=== PATIENT | female | born 1945 | race Caucasian/White ===

== ENCOUNTER → 2016-06-20 | Outpatient (CLI) | payer MEDICARE, BC | LOC: MW.CHPOD 08:00 | PROVIDERS: ATTEND Podiatrist Foot & Ankle Surgery | DX: M79.673 Pain in unspecified foot (principal); R26.9 Unspecified abnormalities of gait and mobility; M21.969 Unspecified acquired deformity of unspecified lower leg; M20.41 Other hammer toe(s) (acquired), right foot; B35.1 Tinea unguium; M20.42 Other hammer toe(s) (acquired), left foot | CPT/HCPCS: 11721; G0463 ==

== ENCOUNTER 2017-01-24 07:53 | Inpatient (IN) | payer MEDICARE, BC ==
[2017-01-24] MEDS ORDERED: Sodium Chloride 0.9% 2.5 ML Syringe FLUSH PRN (08:08)
[2017-01-24] MEDS ORDERED: Sodium Chloride 0.9% 10 ML Syringe FLUSH PRN (08:08)
--- NOTE | 2017-01-24 08:20 | EDM.PDOC ---
ED HPI GENERAL MEDICAL PROBLEM - General Chief Complaint: Respiratory Problem Stated Complaint: FLUIDS DRAINED FROM LUNGS Time Seen by Provider: 01/24/17 07:55 Source of Information: Reports: Patient History Limitations: Reports: No Limitations - History of Present Illness INITIAL COMMENTS - FREE TEXT/NARRATIVE: History of present illness: []Patient is a 71-year-old female who has lived at [facility] for several years with severe RA and multiple joint replacements. Patient has had a week and half of cough and shortness of breath. She was seen by her primary doctor, Dr. Coburn 3 days ago, had a CT scan of her chest done yesterday. The CT was read as bilateral loculated pleural effusions. Review of systems: As per history of present illness and below otherwise all systems reviewed and negative. Past medical history: As per history of present illness and as reviewed below otherwise noncontributory. Surgical history: As per history of present illness and as reviewed below otherwise noncontributory. Social history: No reported history of drug or alcohol abuse. Family history: As per history of present illness and as reviewed below otherwise noncontributory. Physical exam: General: Elderly thin female, mildly short of breath in obvious pain HEENT: Atraumatic, normocephalic, pupils reactive, negative for conjunctival pallor or scleral icterus, mucous membranes moist, throat clear, neck supple tracheostomy in place with a metal cannula, nontender, trachea midline. Lungs: Bilateral mild expiratory wheezing to auscultation, breath sounds equal bilaterally, chest nontender. No accessory muscle use Heart: S1S2, regular, negative for clicks, rubs, or JVD. Abdomen: Soft, nondistended, nontender. Negative for masses or hepatosplenomegaly. Negative for costovertebral tenderness. Pelvis: Stable nontender. Genitourinary: Deferred. Rectal: Deferred. Extremities: Atraumatic, negative for cords or calf pain. Neurovascular unremarkable. Neuro: Awake, alert, . Cranial nerves II through XII unremarkable. Limited mobility secondary to RA joint destruction and pain Diagnostics: []Labs done, she had a CT of the chest done yesterday showing bilateral pleural effusions, blood cultures done Therapeutics: []IV fluids, pain control and antibiotics ordered Impression: []Bilateral pleural effusions Plan: []Admit to floor for drainage of pleural effusions Definitive disposition and diagnosis as appropriate pending reevaluation and review of above. Generalized Pain Score (Numeric/FACES): 8 - Related Data Allergies Allergy/AdvReac Type Severity Reaction Status Date / Time Carbapenems Allergy Unknown unknown Verified 01/24/17 08:32 cephalexin Allergy Unknown unknown Verified 01/24/17 08:32 Cephalosporins Allergy Unknown unknown Verified 01/24/17 08:32 Sulfa (Sulfonamide Allergy Unknown unknown Verified 01/24/17 08:32 Antibiotics) adhesive Allergy Hives Verified 01/24/17 08:32 ceftriaxone sodium Allergy Cannot Verified 01/24/17 08:32 [From Rocephin] Remember cephalexin monohydrate Allergy Cannot Verified 01/24/17 08:32 [From Keflex] Remember gold Au [id number] [Gold [id number]] Allergy Cannot Verified 01/24/17 08:32 Remember latex Allergy Itching Verified 01/24/17 08:32 Penicillins Allergy Cannot Verified 01/24/17 08:32 Remember Home Meds: Home Meds Ferrous Sulfate [Iron Supplement] 325 mg PO DAILY #30 05/19/13 [Rx] Folic Acid 1 mg PO DAILY #30 05/19/13 [Rx] Ibuprofen [Motrin] 600 mg PO TID #90 05/19/13 [Rx] Levalbuterol HCl [Xopenex] 1.25 mg INH Q2H PRN #100 neb 05/19/13 [Rx] Magnesium Hydroxide [Milk of Magnesia] 30 ml PO DAILY PRN #300 05/19/13 [Rx] Vitamin E 400 intnl unit PO DAILY #30 05/19/13 [Rx] Venlafaxine HCl [Venlafaxine ER] 37.5 mg PO DAILY 10/02/13 [History] Sodium Chloride 0.9% 3 ml IH ASDIRECTED PRN 11/02/13 [History] Acetaminophen [Non-Aspirin Extra Strength] 2 tab PO BEDTIME 09/26/14 [History] Acyclovir 400 mg PO TID PRN 09/26/14 [History] Albuterol [Proventil Neb Soln] 2.5 mg NEB Q6HRRT PRN 09/26/14 [History] Ascorbic Acid [Vitamin C] 500 mg PO DAILY 09/26/14 [History] Biotin [Demetrio Biotin] 10,000 mcg PO DAILY 09/26/14 [History] Calcium Carbonate [Tums] 1,000 mg PO BID 09/26/14 [History] Chlorpheniramine Maleate [Allergy] 4 mg PO DAILY PRN 09/26/14 [History] Cod Liver Oil 1 cap PO DAILY 09/26/14 [History] Fluticasone Propionate [Flonase] 1 mcg NASBOTH BEDTIME PRN 09/26/14 [History] Loperamide HCl [Anti-Diarrheal] 2 mg PO DAILY PRN 09/26/14 [History] MV-Mn/FA/Coq10/Lycopene/Lutein [Theragran-M Premier 50+ Caplet] 1 each PO DAILY 09/26/14 [History] Menthol [Biofreeze] 1 applic TOP DAILY PRN 09/26/14 [History] Methotrexate Sodium/PF [Methotrexate 50 mg/2 ml Vial] 25 mg IM ASDIRECTED [History] Montelukast Sodium 10 mg PO DAILY 09/26/14 [History] Omeprazole [Prilosec] 20 cap PO BEDTIME 09/26/14 [History] Propylene Glycol/Peg 400 [Systane 0.3-0.4% Eye Drops] 1 drop OP Q2HR PRN [History] traMADol [Ultram] 50 mg PO Q6HR PRN 09/26/14 [History] Acetaminophen [Tylenol Extra Strength] 1,000 mg PO BID PRN 11/10/14 [History] Sodium Chloride [Saline Nasal Mist] 1 spray NS ASDIRECTED PRN 11/10/14 [History] Docusate Sodium/Sennosides [Senna Plus] 1 tab PO BEDTIME PRN 02/09/15 [History] Metoprolol Succinate [Toprol XL] 50 mg PO DAILY tab.er 02/10/15 [Rx] Acetaminophen with Codeine [Tylenol with Codeine #3 Tablet] 1 tab PO Q4H PRN 09/03 [History] Amoxicillin/Potassium Clav [Augmentin 875-125 Tablet] 1 tab PO BID 01/24/17 [ History] Lactobacillus Acidophilus [Acidophilus] 2 cap PO BID 01/24/17 [History] Past Medical History HEENT History: Reports: Hard of Hearing Other HEENT History: Wears 1 hearing aid sometimes Cardiovascular History: Reports: Hypertension Other Cardiovascular History: anemia Respiratory History: Reports: Asthma, Other (See Below) Other Respiratory History: Tracheostomy maintenance Gastrointestinal History: Reports: Other (See Below) Other Gastrointestinal History: Heartburn Genitourinary History: Reports: None [employer] History: Reports: Other OB/BYN History: amenorrhea Musculoskeletal History: Reports: Arthritis, Osteoarthritis, Other (See Below) Other Musculoskeletal History: 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 Neurological History: Reports: None Psychiatric History: Reports: Depression Endocrine/Metabolic History: Reports: Osteoporosis Hematologic History: Reports: None Immunologic History: Reports: None Oncologic (Cancer) History: Reports: None Other Oncologic History: 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 (current status in [facility] care) Dermatologic History: Reports: None - Infectious Disease History Infectious Disease History: Reports: Chicken Pox, Measles, Mumps - Past Surgical History Female Surgical History: Reports: Tubal Ligation Endocrine Surgical History: Reports: Other (See Below) Musculoskeletal Surgical History: Reports: Hip Replacement, Knee Replacement, Shoulder Replacement Social & Family History - Family History Family Medical History: Unobtainable - Tobacco Use Smoking Status *Q: Never Smoker Second Hand Smoke Exposure: No - Caffeine Use Caffeine Use: Reports: None - Alcohol Use Days Per Week of Alcohol Use: 0 Number of Drinks Per Day: 0 Total Drinks Per Week: 0 - Recreational Drug Use Recreational Drug Use: No Drug Use in Last 12 Months: No ED ROS GENERAL - Review of Systems Review Of Systems: See Below (See history of present illness) ED EXAM, GENERAL - Physical Exam Exam: See Below (See history of present illness) Course - Vital Signs Last Recorded V/S: Last Vital Signs Temp 98.1 F 01/24/17 11:00 Pulse 99 01/24/17 11:00 Resp 24 H 01/24/17 11:00 BP 119/63 01/24/17 11:00 Pulse Ox 99 01/24/17 11:00 - Orders/Labs/Meds Orders: Active Orders 24 hr Category Date Time Status RT Aerosol Therapy [RC] ASDIRECTED Care 01/24/17 09:36 Active CULTURE BLOOD [BC] Stat Lab 01/24/17 08:25 Received CULTURE BLOOD [BC] Stat Lab 01/24/17 08:39 Received Sodium Chloride 0.9% [Normal Saline] 500 ml Med 01/24/17 10:15 Active IV .BOLUS Sodium Chloride 0.9% [Saline Flush] Med 01/24/17 08:08 Active 10 ml FLUSH ASDIRECTED PRN Sodium Chloride 0.9% [Saline Flush] Med 01/24/17 08:08 Active 2.5 ml FLUSH ASDIRECTED PRN Blood Culture x2 Reflex Set [OM.PC] Stat Ot 01/24/17 08:09 Ordered Saline Lock Insert [OM.PC] Stat Ot 01/24/17 08:07 Ordered Medication Orders Acetaminophen (Tylenol) 325 mg PO Q4H PRN PRN Reason: Pain (Mild 1-3)/fever Acetaminophen/Codeine Phosphate (Tylenol With Codeine No.3 300mg/30mg) 1 tab PO Q4H PRN PRN Reason: Pain Last Admin: 01/24/17 13:43 Dose: 1 tab Acidophilus/Pectin (Acidophilus/Pectin, [place]) 2 tab PO BID [facility] Albuterol/Ipratropium (Duoneb 3.0-0.5 Mg/3 Ml) 3 ml NEB Q6HRRT [facility] Last Admin: 01/24/17 13:26 Dose: Calcium Carbonate/Glycine (Tums) 1,000 mg PO BID [facility] Ferrous Sulfate (Ferrous Sulfate) 325 mg PO DAILY [facility] Folic Acid (Folic Acid) 1 mg PO DAILY [facility] Hydrogen Peroxide (Hydrogen Peroxide) 0 ml TOP ASDIRECTED PRN PRN Reason: ASDIRECTED Sodium Chloride (Normal Saline) 500 mls @ 250 mls/hr IV .BOLUS [facility] Last Admin: 01/24/17 10:09 Dose: 250 mls/hr Levofloxacin/Dextrose 500 mg/ (Premix) 100 mls @ 100 mls/hr IV Q48H [facility] Last Admin: 01/24/17 11:39 Dose: 100 mls/hr Piperacillin Sod/Tazobactam (Sod 2.25 gm/ Sodium Chloride) 50 mls @ 100 mls/hr IV Q8H [facility] Vancomycin HCl 500 mg/ Sodium (Chloride) 100 mls @ 100 mls/hr IV Q24H [facility] Last Admin: 01/24/17 13:45 Dose: 100 mls/hr Ibuprofen (Motrin) 600 mg PO TID [facility] Last Admin: 01/24/17 13:44 Dose: 600 mg Loperamide HCl (Imodium) 2 mg PO DAILY PRN PRN Reason: Diarrhea Magnesium Hydroxide (Milk Of Magnesia) 30 ml PO DAILY PRN PRN Reason: Constipation Metoprolol Succinate (Toprol Xl) 50 mg PO DAILY [facility] Omeprazole (Omeprazole) 20 mg PO BEDTIME [place] Ondansetron HCl (Zofran) 4 mg IVPUSH Q4H PRN PRN Reason: Nausea Biotin [Demetrio Biotin] (10,000 Mcg) 1 each PO DAILY [facility] Mv-Mn/Fa/Coq10/Lycopene/Lutein [ Theragran-M Premier 50+ Cap] 1 each PO DAILY [facility] Propylene Glycol/Peg 400 [Systane 0.3-0. 4% Eye Drops] 1 Drop 1 each EYEBOTH Q2HR PRN PRN Reason: Dry Eyes Senna/Docusate Sodium (Senna Plus) 1 tab PO BEDTIME PRN PRN Reason: Constipation Sodium Chloride (Saline Flush) 10 ml FLUSH ASDIRECTED PRN PRN Reason: Keep Vein Open Sodium Chloride (Saline Flush) 2.5 ml FLUSH ASDIRECTED PRN PRN Reason: Keep Vein Open Sodium Chloride ([place] Nasal [place]) 1 ml RADHA ASDIRECTED PRN PRN Reason: allergies for dryness Tramadol HCl (Ultram) 50 mg PO Q6HR PRN PRN Reason: Pain Last Admin: 01/24/17 12:11 Dose: 50 mg Vancomycin HCl (Pharmacy To Dose - Vancomycin) 1 dose .XX ASDIRECTED [facility] Venlafaxine HCl (Effexor Xr) 37.5 mg PO DAILY [facility] Vitamin E (Vitamin E) 400 units PO DAILY [facility] Labs: Laboratory Tests 01/24/17 01/24/17 01/24/17 Range/Units 08:25 08:25 08:25 WBC 6.42 (4.0-11.0) K/uL RBC 2.85 L (4.30-5.90) M/uL Hgb 9.5 L (12.0-16.0) g/dL Hct 28.1 L (36.0-46.0) % MCV 98.6 H (80.0-98.0) fL MCH 33.3 H (27.0-32.0) pg MCHC 33.8 (31.0-37.0) g/dL RDW Std Deviation 52.3 (28.0-62.0) fl RDW Coeff of Beau 15 (11.0-15.0) % Plt Count 171 (150-400) K/uL MPV 9.20 (7.40-12.00) fL Add Manual Diff YES Neutrophils % (Manual) 77 (48.0-80.0) % Band Neutrophils % 11 % Lymphocytes % (Manual) 7 L (16.0-40.0) % Monocytes % (Manual) 4 (0.0-15.0) % Eosinophils % (Manual) 1 (0.0-7.0) % Nucleated RBC % 0.0 /100WBC Absolute Seg Neuts 4.9 (1.4-5.7) Band Neutrophils # 0.7 Lymphocytes # (Manual) 0.4 L (0.6-2.4) Monocytes # (Manual) 0.3 (0.0-0.8) Eosinophils # (Manual) 0.1 (0.0-0.7) Basophils # (Manual) 0.1 (0.0-0.1) Nucleated RBCs # 0 K/uL INR 1.05 (0.86-1.11) APTT 31.0 (18.6-31.3) SEC Sodium 130 L (136-146) mmol/L Potassium 3.8 (3.5-5.1) mmol/L Chloride 98 (98-110) mmol/L Carbon Dioxide 18 L (21-31) mmol/L BUN 30 H (6.0-23.0) mg/dL Creatinine 2.1 H (0.6-1.5) mg/dL Est Cr Clr Drug Dosing 16.24 mL/min Estimated GFR (MDRD) 23.3 ml/min Glucose 89 (60-110) mg/dL Calcium 8.9 (8.8-10.8) mg/dL Total Bilirubin 0.4 (0.1-1.5) mg/dL AST 17 (5-40) IU/L ALT 10 (8-54) IU/L Alkaline Phosphatase 59 (40-150) Total Protein 6.7 (6.0-8.0) g/dL Albumin 3.3 L (3.4-4.8) g/dL Globulin 3.4 (2.0-3.5) g/dL Albumin/Globulin Ratio 1.0 L (1.3-2.8) Meds: Medications Generic Name Dose Route Start Last Admin Trade Name Freq PRN Reason Stop Dose Admin Acetaminophen 325 mg 01/24/17 10:38 Tylenol PO Q4H PRN Pain (Mild 1-3)/fever Acetaminophen/Codeine Phosphate 1 tab 01/24/17 10:44 01/24/17 13:43 Tylenol With Codeine No.3 300mg/30mg PO 1 tab Q4H PRN Administration Pain Acidophilus/Pectin 2 tab 01/24/17 21:00 Acidophilus/Pectin, [place] PO BID [facility] Albuterol/Ipratropium 3 ml 01/24/17 12:00 01/24/17 13:26 Duoneb 3.0-0.5 Mg/3 Ml NEB Not Given Q6HRRT [facility] Calcium Carbonate/Glycine 1,000 mg 01/24/17 21:00 Tums PO BID [facility] Ferrous Sulfate 325 mg 01/25/17 09:00 Ferrous Sulfate PO DAILY [facility] Folic Acid 1 mg 01/25/17 09:00 Folic Acid PO DAILY [facility] Hydrogen Peroxide 0 ml 01/24/17 12:18 Hydrogen Peroxide TOP ASDIRECTED PRN ASDIRECTED Sodium Chloride 500 mls @ 250 mls/hr 01/24/17 10:15 01/24/17 10:09 Normal Saline IV 250 mls/hr .BOLUS [facility] Administration Levofloxacin/Dextrose 500 mg/ 100 mls @ 100 mls/hr 01/24/17 11:30 01/24/17 11 :39 Premix IV 100 mls/hr Q48H [facility] Administration Piperacillin Sod/Tazobactam 50 mls @ 100 mls/hr 01/24/17 16:00 Sod 2.25 gm/ Sodium Chloride IV Q8H [facility] Vancomycin HCl 500 mg/ Sodium 100 mls @ 100 mls/hr 01/24/17 13:00 01/24/17 13 :45 Chloride IV 100 mls/hr Q24H [facility] Administration Ibuprofen 600 mg 01/24/17 14:00 01/24/17 13:44 Motrin PO 600 mg TID [facility] Administration Loperamide HCl 2 mg 01/24/17 10:44 Imodium PO DAILY PRN Diarrhea Magnesium Hydroxide 30 ml 01/24/17 10:44 Milk Of Magnesia PO DAILY PRN Constipation Metoprolol Succinate 50 mg 01/25/17 09:00 Toprol Xl PO DAILY [facility] Omeprazole 20 mg 01/24/17 21:00 Omeprazole PO BEDTIME [facility] Ondansetron HCl 4 mg 01/24/17 10:38 Zofran IVPUSH Q4H PRN Nausea Biotin [Demetrio Biotin] 1 each 01/25/17 09:00 10,000 Mcg PO DAILY [facility] Mv-Mn/Fa/Coq10/ 1 each 01/25/17 09:00 Lycopene/Lutein [ PO Theragran-M Premier DAILY [facility] 50+ Cap] Propylene Glycol/Peg 1 each 01/24/17 10:44 400 [Systane 0.3-0. EYEBOTH 4% Eye Drops] 1 Drop Q2HR PRN Dry Eyes Senna/Docusate Sodium 1 tab 01/24/17 10:44 Senna Plus PO BEDTIME PRN Constipation Sodium Chloride 10 ml 01/24/17 08:08 Saline Flush FLUSH ASDIRECTED PRN Keep Vein Open Sodium Chloride 2.5 ml 01/24/17 08:08 Saline Flush FLUSH ASDIRECTED PRN Keep Vein Open Sodium Chloride 1 ml 01/24/17 10:44 [place] Nasal [place] RADHA ASDIRECTED PRN allergies for dryness Tramadol HCl 50 mg 01/24/17 10:44 01/24/17 12:11 Ultram PO 50 mg Q6HR PRN Administration Pain Vancomycin HCl 1 dose 01/24/17 10:45 Pharmacy To Dose - Vancomycin .XX ASDIRECTED [facility] Venlafaxine HCl 37.5 mg 01/25/17 09:00 Effexor Xr PO DAILY [facility] Vitamin E 400 units 01/25/17 09:00 Vitamin E PO DAILY [facility] Discontinued Medications Generic Name Dose Route Start Last Admin Trade Name Freq PRN Reason Stop Dose Admin Albuterol/Ipratropium 3 ml 01/24/17 09:36 01/24/17 09:50 Duoneb 3.0-0.5 Mg/3 Ml NEB 01/24/17 09:37 3 ml ONETIME ONE Administration Piperacillin Sod/Tazobactam 50 mls @ 100 mls/hr 01/24/17 09:41 01/24/17 09:51 Sod 2.25 gm/ Sodium Chloride IV 01/24/17 10:10 100 mls/hr ONETIME ONE Administration Sodium Chloride 500 mls @ 999 mls/hr 01/24/17 09:41 01/24/17 10:20 Normal Saline IV 01/24/17 10:11 Not Given .Bolus ONE Morphine Sulfate 2 mg 01/24/17 09:35 01/24/17 09:50 Morphine IVPUSH 01/24/17 09:36 2 mg ONETIME ONE Administration Ondansetron HCl 4 mg 01/24/17 09:36 01/24/17 09:50 Zofran IVPUSH 01/24/17 09:37 4 mg ONETIME ONE Administration Departure - Departure Time of Disposition: 10:40 Disposition: Admitted As Inpatient 67 Condition: Good, Fair Clinical Impression: Bilateral pleural effusion - Discharge Information - My Orders Last 24 Hours: My Active Orders 01/24/17 08:07 Saline Lock Insert [OM.PC] Stat 01/24/17 08:08 Sodium Chloride 0.9% [Saline Flush] 10 ml FLUSH ASDIRECTED PRN Sodium Chloride 0.9% [Saline Flush] 2.5 ml FLUSH ASDIRECTED PRN 01/24/17 08:09 Blood Culture x2 Reflex Set [OM.PC] Stat 01/24/17 08:25 CULTURE BLOOD [BC] Stat 01/24/17 08:39 CULTURE BLOOD [BC] Stat 01/24/17 09:36 RT Aerosol Therapy [RC] ASDIRECTED 01/24/17 10:15 Sodium Chloride 0.9% [Normal Saline] 500 ml IV .BOLUS - Assessment/Plan Last 24 Hours: My Active Orders 01/24/17 08:07 Saline Lock Insert [OM.PC] Stat 01/24/17 08:08 Sodium Chloride 0.9% [Saline Flush] 10 ml FLUSH ASDIRECTED PRN Sodium Chloride 0.9% [Saline Flush] 2.5 ml FLUSH ASDIRECTED PRN 01/24/17 08:09 Blood Culture x2 Reflex Set [OM.PC] Stat 01/24/17 08:25 CULTURE BLOOD [BC] Stat 01/24/17 08:39 CULTURE BLOOD [BC] Stat 01/24/17 09:36 RT Aerosol Therapy [RC] ASDIRECTED 01/24/17 10:15 Sodium Chloride 0.9% [Normal Saline] 500 ml IV .BOLUS
[2017-01-24] MEDS ORDERED: Morphine 2 MG/ML Syringe IVPUSH ONE (09:35)
[2017-01-24] MEDS ORDERED: Ondansetron 4 MG/2 ML SDV IVPUSH ONE (09:36)
[2017-01-24] MEDS ORDERED: Albuterol/Ipratropium 3.0-0.5 MG/3 ML Neb Soln NEB ONE (09:36)
[2017-01-24] MEDS ORDERED: Sodium Chloride 0.9% 500 ML IV ONE (09:41)
[2017-01-24] MEDS ORDERED: Piperacillin/Tazobactam 2.25 GM in Sodium Chloride 0.9% 50 ML IV ONE (09:41)
[2017-01-24] MEDS ORDERED: Sodium Chloride 0.9% 500 ML IV SCH (10:15)
[2017-01-24] MEDS ORDERED: Ondansetron 4 MG/2 ML SDV IVPUSH PRN (10:38)
[2017-01-24] MEDS ORDERED: Acetaminophen 325 MG Tab PO PRN (10:38)
[2017-01-24] MEDS ORDERED: Magnesium Hydroxide 400 MG/5 ML Susp 30 ML Cup PO PRN (10:44)
[2017-01-24] MEDS ORDERED: Loperamide 2 MG Cap PO PRN (10:44)
[2017-01-24] MEDS ORDERED: traMADol 50 MG Tab PO PRN (10:44)
[2017-01-24] MEDS ORDERED: Propylene Glycol/Peg 400 [Systane 0.3-0.4% Eye Drops] 1 DROP EYEBOTH PRN (10:44)
[2017-01-24] MEDS ORDERED: Sodium Chloride 0.65% Nasal Spray 45 ML Bottle NAS PRN (10:44)
--- NOTE | 2017-01-24 10:53 | PCM.HP ---
H&P History of Present Illness - General Date of Service: 01/24/17 Admit Problem/Dx: Admission Diagnosis/Problem Admission Diagnosis/Problem Pleural effusion Source of Information: Patient, Provider - History of Present Illness Initial Comments - Free Text/Narative: She lives at [facility] and has had a cough. She had a chest CT yesterday which showed multiple areas of loculated pleural effusions and possible basilar consolidation. Generalized Pain Score (Numeric/FACES): 8 - Related Data Allergies/Adverse Reactions: Allergies Allergy/AdvReac Type Severity Reaction Status Date / Time Carbapenems Allergy Unknown unknown Verified 01/24/17 08:32 cephalexin Allergy Unknown unknown Verified 01/24/17 08:32 Cephalosporins Allergy Unknown unknown Verified 01/24/17 08:32 Sulfa (Sulfonamide Allergy Unknown unknown Verified 01/24/17 08:32 Antibiotics) adhesive Allergy Hives Verified 01/24/17 08:32 ceftriaxone sodium Allergy Cannot Verified 01/24/17 08:32 [From Rocephin] Remember cephalexin monohydrate Allergy Cannot Verified 01/24/17 08:32 [From Keflex] Remember gold Au 198 [Gold Au-198] Allergy Cannot Verified 01/24/17 08:32 Remember latex Allergy Itching Verified 01/24/17 08:32 Penicillins Allergy Cannot Verified 01/24/17 08:32 Remember Home Medications: Home Meds Ferrous Sulfate [Iron Supplement] 325 mg PO DAILY #30 05/19/13 [Rx] Folic Acid 1 mg PO DAILY #30 05/19/13 [Rx] Ibuprofen [Motrin] 600 mg PO TID #90 05/19/13 [Rx] Levalbuterol HCl [Xopenex] 1.25 mg INH Q2H PRN #100 neb 05/19/13 [Rx] Magnesium Hydroxide [Milk of Magnesia] 30 ml PO DAILY PRN #300 05/19/13 [Rx] Vitamin E 400 intnl unit PO DAILY #30 05/19/13 [Rx] Venlafaxine HCl [Venlafaxine ER] 37.5 mg PO DAILY 10/02/13 [History] Sodium Chloride 0.9% 3 ml IH ASDIRECTED PRN 11/02/13 [History] Acetaminophen [Non-Aspirin Extra Strength] 2 tab PO BEDTIME 09/26/14 [History] Acyclovir 400 mg PO TID PRN 09/26/14 [History] Albuterol [Proventil Neb Soln] 2.5 mg NEB Q6HRRT PRN 09/26/14 [History] Ascorbic Acid [Vitamin C] 500 mg PO DAILY 09/26/14 [History] Biotin [Demetrio Biotin] 10,000 mcg PO DAILY 09/26/14 [History] Calcium Carbonate [Tums] 1,000 mg PO BID 09/26/14 [History] Chlorpheniramine Maleate [Allergy] 4 mg PO DAILY PRN 09/26/14 [History] Cod Liver Oil 1 cap PO DAILY 09/26/14 [History] Fluticasone Propionate [Flonase] 1 mcg NASBOTH BEDTIME PRN 09/26/14 [History] Loperamide HCl [Anti-Diarrheal] 2 mg PO DAILY PRN 09/26/14 [History] MV-Mn/FA/Coq10/Lycopene/Lutein [Theragran-M Premier 50+ Caplet] 1 each PO DAILY 09/26/14 [History] Menthol [Biofreeze] 1 applic TOP DAILY PRN 09/26/14 [History] Methotrexate Sodium/PF [Methotrexate 50 mg/2 ml Vial] 25 mg IM ASDIRECTED [History] Montelukast Sodium 10 mg PO DAILY 09/26/14 [History] Omeprazole [Prilosec] 20 cap PO BEDTIME 09/26/14 [History] Propylene Glycol/Peg 400 [Systane 0.3-0.4% Eye Drops] 1 drop OP Q2HR PRN [History] traMADol [Ultram] 50 mg PO Q6HR PRN 09/26/14 [History] Acetaminophen [Tylenol Extra Strength] 1,000 mg PO BID PRN 11/10/14 [History] Sodium Chloride [Saline Nasal Mist] 1 spray NS ASDIRECTED PRN 11/10/14 [History] Docusate Sodium/Sennosides [Senna Plus] 1 tab PO BEDTIME PRN 02/09/15 [History] Metoprolol Succinate [Toprol XL] 50 mg PO DAILY tab.er 02/10/15 [Rx] Acetaminophen with Codeine [Tylenol with Codeine #3 Tablet] 1 tab PO Q4H PRN 09/03 [History] Amoxicillin/Potassium Clav [Augmentin 875-125 Tablet] 1 tab PO BID 01/24/17 [ History] Lactobacillus Acidophilus [Acidophilus] 2 cap PO BID 01/24/17 [History] Past Medical History HEENT History: Reports: Hard of Hearing Other HEENT History: Wears 1 hearing aid sometimes Cardiovascular History: Reports: Hypertension Other Cardiovascular History: anemia Respiratory History: Reports: Asthma, Other (See Below) Other Respiratory History: Tracheostomy maintenance Gastrointestinal History: Reports: Other (See Below) Other Gastrointestinal History: Heartburn Genitourinary History: Reports: None [employer] History: Reports: Other OB/BYN History: amenorrhea Musculoskeletal History: Reports: Arthritis, Osteoarthritis, RA, Other (See Below) Other Musculoskeletal History: 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 Neurological History: Reports: None Psychiatric History: Reports: Depression Endocrine/Metabolic History: Reports: Osteoporosis Hematologic History: Reports: None Immunologic History: Reports: None Oncologic (Cancer) History: Reports: None Other Oncologic History: 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) Dermatologic History: Reports: None - Infectious Disease History Infectious Disease History: Reports: Chicken Pox, Measles, Mumps - Past Surgical History Female Surgical History: Reports: Tubal Ligation Endocrine Surgical History: Reports: Other (See Below) (she has a tracheostomy which was the result of prior prolonged time on a ventilator.) Musculoskeletal Surgical History: Reports: Hip Replacement, Knee Replacement, Shoulder Replacement Social & Family History - Family History Family Medical History: Unobtainable - Tobacco Use Smoking Status *Q: Never Smoker Second Hand Smoke Exposure: No - Caffeine Use Caffeine Use: Reports: None - Alcohol Use Days Per Week of Alcohol Use: 0 Number of Drinks Per Day: 0 Total Drinks Per Week: 0 - Recreational Drug Use Recreational Drug Use: No Drug Use in Last 12 Months: No H&P Review of Systems - Review of Systems: Review Of Systems: See Below General: Denies: Fever, Chills Pulmonary: Reports: Shortness of Breath, Cough Cardiovascular: Denies: Chest Pain Gastrointestinal: Denies: Black Stool, Bloody Stool, Hematemesis, Hematochezia, Melena Genitourinary: Denies: Hematuria Musculoskeletal: Reports: Other (diffuse body aches and diffuse joint pain. ) Exam - Exam Exam: See Below - Vital Signs Vital Signs: Last Vital Signs Temp 97.7 F 01/24/17 08:01 Pulse 85 01/24/17 10:13 Resp 24 H 01/24/17 10:13 BP 97/58 L 01/24/17 10:13 Pulse Ox 100 01/24/17 10:13 Weight: 41.277 kg - Exam Quality Assessment: Other (multiple joint and torso deformities c/w prior severe RA. ) General: Alert, Oriented, Cooperative HEENT: EOMI Neck: Other (tracheostomy noted; ) Lungs: Clear to Auscultation Cardiovascular: Regular Rate, Regular Rhythm GI/Abdominal Exam: Non-Tender (Female) Exam: Deferred Rectal (Female) Exam: Deferred Extremities: No Pedal Edema Neurological: Cranial Nerves Intact. No: Normal Speech (she has a tracheostomy and can only whisper. ) - Patient Data Result Diagrams: 01/24/17 08:25 01/24/17 08:25 *Q Meaningful Use (ADM) - VTE *Q VTE Criteria *Q: - Stroke *Q Stroke Criteria *Q: - AMI *Q AMI Criteria *Q: - Problem List (1) Rheumatoid arthritis SNOMED Code(s): 21261452 ICD Code: M06.9 - RHEUMATOID ARTHRITIS, UNSPECIFIED Status: Acute Current Visit: Yes (2) Tracheostomy in place SNOMED Code(s): 687821951 ICD Code: Z93.0 - TRACHEOSTOMY STATUS Status: Acute Current Visit: Yes (3) Pneumonia SNOMED Code(s): 839341779 ICD Code: J18.9 - PNEUMONIA, UNSPECIFIED ORGANISM Status: Acute Current Visit: No Problem List Initiated/Reviewed/Updated: Yes Orders Last 24hrs: Active Orders 24 hr Category Date Time Status Oxygen Therapy [RC] PRN Care 01/24/17 10:38 Ordered RT Aerosol Therapy [RC] ASDIRECTED Care 01/24/17 10:40 Ordered VTE/DVT Education [RC] PER UNIT ROUTINE Care 01/24/17 10:38 Ordered Vital Signs [RC] Q4H Care 01/24/17 10:38 Ordered Regular Diet [DIET] Diet 01/24/17 Lunch Ordered Chest 1V Frontal [CR] Routine Exams 01/24/17 10:38 Ordered CBC WITH AUTO DIFF [HEME] AM Lab 01/25/17 05:11 Ordered CBC WITH AUTO DIFF [HEME] AM Lab 01/26/17 05:11 Ordered CBC WITH AUTO DIFF [HEME] AM Lab 01/27/17 05:11 Ordered COMPREHENSIVE METABOLIC PN,CMP [CHEM] AM Lab 01/25/17 05:11 Ordered COMPREHENSIVE METABOLIC PN,CMP [CHEM] AM Lab 01/26/17 05:11 Ordered COMPREHENSIVE METABOLIC PN,CMP [CHEM] AM Lab 01/27/17 05:11 Ordered MAGNESIUM [CHEM] AM Lab 01/25/17 05:11 Ordered PHOSPHORUS [CHEM] AM Lab 01/25/17 05:11 Ordered Acetaminophen [Tylenol] Med 01/24/17 10:38 Ordered 325 mg PO Q4H PRN Acetaminophen/Codeine [Tylenol with Codeine No.3 300MG/ Med 01/24/17 10:44 Ordered 30MG] 1 tab PO Q4H PRN Albuterol/Ipratropium [DuoNeb 3.0-0.5 MG/3 ML] Med 01/24/17 10:45 Ordered 3 ml NEB Q6H Biotin [Demetrio Biotin] Med 01/25/17 09:00 Ordered 10,000 mcg PO DAILY Calcium Carbonate [Tums] Med 01/24/17 21:00 Ordered 1,000 mg PO BID Docusate Sodium/Sennosides [Senna Plus] Med 01/24/17 10:44 Ordered 1 tab PO BEDTIME PRN Ferrous Sulfate Med 01/25/17 09:00 Ordered 325 mg PO DAILY Folic Acid Med 01/25/17 09:00 Ordered 1 mg PO DAILY Ibuprofen [Motrin] Med 01/24/17 14:00 Ordered 600 mg PO TID Lactobacillus Acidophilus [Acidophilus] Med 01/24/17 21:00 Ordered 2 cap PO BID Levofloxacin/Dextrose 5%-Water [Levaquin in D5W 500 MG/ Med 01/24/17 10:47 Ordered 100 ML] 500 mg Premix Bag 1 bag IV DAILY Loperamide [Imodium] Med 01/24/17 10:44 Ordered 2 mg PO DAILY PRN MV-Mn/FA/Coq10/Lycopene/Lutein [Theragran-M Premier 50+ Med 01/25/17 09:00 Ordered Caplet] 1 each PO DAILY Magnesium Hydroxide [Milk of Magnesia] Med 01/24/17 10:44 Ordered 30 ml PO DAILY PRN Metoprolol Succinate [Toprol XL] Med 01/25/17 09:00 Ordered 50 mg PO DAILY Omeprazole Med 01/24/17 21:00 Ordered 20 cap PO BEDTIME Ondansetron [Zofran] Med 01/24/17 10:38 Ordered 4 mg IVPUSH Q4H PRN Piperacillin/Tazobactam [Zosyn] 2.25 gm Med 01/24/17 16:00 Ordered Sodium Chloride 0.9% [Normal Saline] 50 ml IV Q6H Propylene Glycol/Peg 400 [Systane 0.3-0.4% Eye Drops] Med 01/24/17 10:44 Ordered 1 drop OP Q2HR PRN Sodium Chloride [Saline Nasal Mist] Med 01/24/17 10:44 Ordered 1 spray NS ASDIRECTED PRN Vancomycin Pharmacy to Dose [Pharmacy to Dose - Med 01/24/17 10:45 Ordered Vancomycin] 1 dose .XX ASDIRECTED Venlafaxine [Effexor XR] Med 01/25/17 09:00 Ordered 37.5 mg PO DAILY Vitamin E [Vitamin E] Med 01/25/17 09:00 Ordered 400 intnl unit PO DAILY traMADol [Ultram] Med 01/24/17 10:44 Ordered 50 mg PO Q6HR PRN Resuscitation Status Routine Resus Stat 01/24/17 10:38 Ordered Medication Orders Sodium Chloride (Normal Saline) 500 mls @ 250 mls/hr IV .BOLUS [place] Last Admin: 01/24/17 10:09 Dose: 250 mls/hr Sodium Chloride (Saline Flush) 10 ml FLUSH ASDIRECTED PRN PRN Reason: Keep Vein Open Sodium Chloride (Saline Flush) 2.5 ml FLUSH ASDIRECTED PRN PRN Reason: Keep Vein Open Assessment/Plan Comment:: 01/24/[address] Gautam about possible drainage of pleural effusions. Will wait for now and may reconsider depending on clinical course. Broad spectrum antibiotics. Antoine Orr MD
[2017-01-24] MEDS ORDERED: Levofloxacin/Dextrose 5%-Water 500 MG in Premix Bag 1 BAG IV SCH (11:30)
--- NOTE | 2017-01-24 11:51 | CR ---
EXAMINATION: Portable chest radiograph. HISTORY: Pneumonia. FINDINGS: There is a tracheostomy tube noted. Chronic interstitial prominence within the lungs. Small bilateral loculated appearing pleural effusions are noted. The heart is normal in size. No pneumothorax. Osseous structures appear osteopenic. Bilateral shoulder replacement hardware noted. IMPRESSION: 1. Small loculated appearing bilateral pleural effusions.
[2017-01-24] MEDS ORDERED: Hydrogen Peroxide 3% Top Soln 473 ML Bottle TOP PRN (12:18)
[2017-01-24] MEDS: Albuterol/Ipratropium 3.0-0.5 MG/3 ML Neb Soln NEB SCH ×2 (13:26→17:43)
[2017-01-24] MEDS: Acetaminophen/Codeine 300-30 MG Tab PO PRN ×2 (13:43→21:11)
[2017-01-24] MEDS: Ibuprofen 600 MG Tab PO SCH ×2 (13:44→21:04)
[2017-01-24] MEDS: Piperacillin/Tazobactam 2.25 GM in Sodium Chloride 0.9% 50 ML IV SCH (15:39)
--- NOTE | 2017-01-24 20:32 | PCM.SN ---
- Free Text/Narrative Note: I spoke with her daughter Sophie at [phone] regarding status. I advised transfer to ICU for closer monitoring as she has trouble with ability to communicate. Daughter mentioned that the patient has been treated for a recurrent staphylococcal vaginitis. Will speak with DR Gautam in am and again consider ultrasound guided thoracentesis. I advised that she will likely be in the hospital until Saturday.
[2017-01-24] MEDS: Calcium Carbonate 500 MG Tab.Chew PO SCH (21:01)
[2017-01-24] MEDS: Omeprazole 20 MG Cap.CR PO SCH (21:02)
[2017-01-24] MEDS: Acidophilus with Citrus Pectin Tab PO SCH (21:02)
[2017-01-24] MEDS: Sodium Chloride 0.9% 1,000 ML IV SCH (21:02)
[2017-01-25] MEDS ORDERED: Sodium Chloride 0.9% 500 ML IV ONE ×2 (00:39→09:52)
[2017-01-25] MEDS: Piperacillin/Tazobactam 2.25 GM in Sodium Chloride 0.9% 50 ML IV SCH (00:44)
[2017-01-25] MEDS: Albuterol/Ipratropium 3.0-0.5 MG/3 ML Neb Soln NEB SCH ×3 (00:44→12:08)
[2017-01-25] MEDS: Ibuprofen 600 MG Tab PO SCH (06:09)
[2017-01-25] MEDS: Acetaminophen/Codeine 300-30 MG Tab PO PRN ×2 (07:00→10:58)
[2017-01-25] MEDS: Sodium Chloride 0.9% 1,000 ML IV SCH ×2 (07:18→10:01)
[2017-01-25] MEDS: Acidophilus with Citrus Pectin Tab PO SCH ×2 (08:48→20:01)
[2017-01-25] MEDS: Calcium Carbonate 500 MG Tab.Chew PO SCH (08:49)
[2017-01-25] MEDS: Venlafaxine 37.5 MG Cap.ER PO SCH (08:49)
[2017-01-25] MEDS ORDERED: Folic Acid 1 MG Tab PO SCH (09:00)
[2017-01-25] MEDS ORDERED: Metoprolol Succinate 50 MG Tab.ER PO SCH (09:00)
[2017-01-25] MEDS ORDERED: Vitamin E (dl-alpha-tocopherol acetate) 400 Unit Cap PO SCH (09:00)
[2017-01-25] MEDS ORDERED: Ferrous Sulfate 325 MG Tab PO SCH (09:00)
[2017-01-25] MEDS ORDERED: Magnesium Sulfate/Water 2 GM in Premix Bag 1 BAG IV ONE (09:49)
--- NOTE | 2017-01-25 10:01 | PCM.PN ---
- General Info Date of Service: 01/25/17 - Review of Systems General: Reports: No Symptoms HEENT: Reports: No Symptoms Pulmonary: Reports: No Symptoms Cardiovascular: Reports: No Symptoms Gastrointestinal: Reports: No Symptoms Musculoskeletal: Reports: No Symptoms Skin: Reports: No Symptoms Neurological: Reports: No Symptoms Psychiatric: Reports: No Symptoms - Patient Data Vitals - Most Recent: Last Vital Signs Temp 97.9 F 01/25/17 04:00 Pulse 92 01/25/17 09:06 Resp 15 01/25/17 07:00 BP 97/50 L 01/25/17 09:06 Pulse Ox 96 01/25/17 07:00 Weight - Most Recent: 44.8 kg I&O - Last 24 Hours: Intake & Output 01/24/17 01/25/17 01/25/17 22:59 06:59 14:59 Intake Total 531 734 8168 Output Total 45 Balance 183 393 1101 Lab Results Last 24 Hours: Laboratory Results - last 24 hr 01/24/17 01/24/17 01/25/17 Range/Units 22:50 22:50 03:00 WBC (4.0-11.0) K/uL RBC (4.30-5.90) M/uL Hgb (12.0-16.0) g/dL Hct (36.0-46.0) % MCV (80.0-98.0) fL MCH (27.0-32.0) pg MCHC (31.0-37.0) g/dL RDW Std Deviation (28.0-62.0) fl RDW Coeff of Beau (11.0-15.0) % Plt Count (150-400) K/uL MPV (7.40-12.00) fL Add Manual Diff Neutrophils % (Manual) (48.0-80.0) % Band Neutrophils % % Lymphocytes % (Manual) (16.0-40.0) % Nucleated RBC % /100WBC Absolute Seg Neuts (1.4-5.7) Band Neutrophils # Lymphocytes # (Manual) (0.6-2.4) Nucleated RBCs # K/uL VBG pH 7.26 L (7.31-7.41) VBG pCO2 38 (35-45) mmHG VBG pO2 59 H (30-40) mmHG VBG HCO3 17 L (22-30) mEq/L VBG Total CO2 17 L (41-51) mmol/L VBG Base Excess -9.3 L (-3.0-3.0) Lactate 1.8 (0.20-2.00) mmol/L Sodium (136-146) mmol/L Potassium (3.5-5.1) mmol/L Chloride (98-110) mmol/L Carbon Dioxide (21-31) mmol/L BUN (6.0-23.0) mg/dL Creatinine (0.6-1.5) mg/dL Est Cr Clr Drug Dosing mL/min Estimated GFR (MDRD) ml/min Glucose (60-110) mg/dL Calcium (8.8-10.8) mg/dL Phosphorus (2.4-4.7) mg/dL Magnesium (1.5-2.3) mEq/L Total Bilirubin (0.1-1.5) mg/dL AST (5-40) IU/L ALT (8-54) IU/L Alkaline Phosphatase (40-150) Total Protein (6.0-8.0) g/dL Albumin (3.4-4.8) g/dL Globulin (2.0-3.5) g/dL Albumin/Globulin Ratio (1.3-2.8) Urine Color YELLOW Urine Appearance SLT CLOUDY Urine pH 5.5 (5.0-8.0) Ur Specific [place] 1.020 (1.001-1.035) Urine Protein 30 (NEGATIVE) mg/dL Urine Glucose (UA) NEGATIVE (NEGATIVE) mg/dL Urine Ketones TRACE H (NEGATIVE) mg/dL Urine Occult Blood NEGATIVE (NEGATIVE) Urine Nitrite NEGATIVE (NEGATIVE) Urine Bilirubin NEGATIVE (NEGATIVE) Urine Urobilinogen 0.2 (<2.0) EU/dL Ur Leukocyte Esterase NEGATIVE (NEGATIVE) Urine RBC 0-1 (0-2/HPF) Urine WBC 0-2 (0-5/HPF) Ur Epithelial Cells OCCASIONAL (NONE-FEW) Amorphous Sediment MODERATE (NEGATIVE) Urine Bacteria FEW (NEGATIVE) 01/25/17 01/25/17 Range/Units 05:24 05:24 WBC 9.85 (4.0-11.0) K/uL RBC 2.61 L (4.30-5.90) M/uL Hgb 8.6 L (12.0-16.0) g/dL Hct 25.9 L (36.0-46.0) % MCV 99.2 H (80.0-98.0) fL MCH 33.0 H (27.0-32.0) pg MCHC 33.2 (31.0-37.0) g/dL RDW Std Deviation 53.6 (28.0-62.0) fl RDW Coeff of Beau 15 (11.0-15.0) % Plt Count 169 (150-400) K/uL MPV 9.30 (7.40-12.00) fL Add Manual Diff YES Neutrophils % (Manual) 75 (48.0-80.0) % Band Neutrophils % 15 % Lymphocytes % (Manual) 10 L (16.0-40.0) % Nucleated RBC % 0.0 /100WBC Absolute Seg Neuts 7.4 H (1.4-5.7) Band Neutrophils # 1.5 Lymphocytes # (Manual) 1.0 (0.6-2.4) Nucleated RBCs # 0 K/uL VBG pH (7.31-7.41) VBG pCO2 (35-45) mmHG VBG pO2 (30-40) mmHG VBG HCO3 (22-30) mEq/L VBG Total CO2 (41-51) mmol/L VBG Base Excess (-3.0-3.0) Lactate (0.20-2.00) mmol/L Sodium 132 L (136-146) mmol/L Potassium 4.2 (3.5-5.1) mmol/L Chloride 103 (98-110) mmol/L Carbon Dioxide 14 L (21-31) mmol/L BUN 41 H (6.0-23.0) mg/dL Creatinine 3.2 H (0.6-1.5) mg/dL Est Cr Clr Drug Dosing 11.75 mL/min Estimated GFR (MDRD) 14.3 ml/min Glucose 93 (60-110) mg/dL Calcium 7.8 L (8.8-10.8) mg/dL Phosphorus 4.8 H (2.4-4.7) mg/dL Magnesium 1.2 L (1.5-2.3) mEq/L Total Bilirubin 0.2 (0.1-1.5) mg/dL AST 21 (5-40) IU/L ALT 11 (8-54) IU/L Alkaline Phosphatase 58 (40-150) Total Protein 5.6 L (6.0-8.0) g/dL Albumin 2.6 L (3.4-4.8) g/dL Globulin 3.0 (2.0-3.5) g/dL Albumin/Globulin Ratio 0.9 L (1.3-2.8) Urine Color Urine Appearance Urine pH (5.0-8.0) Ur Specific [place] (1.001-1.035) Urine Protein (NEGATIVE) mg/dL Urine Glucose (UA) (NEGATIVE) mg/dL Urine Ketones (NEGATIVE) mg/dL Urine Occult Blood (NEGATIVE) Urine Nitrite (NEGATIVE) Urine Bilirubin (NEGATIVE) Urine Urobilinogen (<2.0) EU/dL Ur Leukocyte Esterase (NEGATIVE) Urine RBC (0-2/HPF) Urine WBC (0-5/HPF) Ur Epithelial Cells (NONE-FEW) Amorphous Sediment (NEGATIVE) Urine Bacteria (NEGATIVE) Med Orders - Current: Current Medications Acetaminophen (Tylenol) 325 mg PO Q4H PRN PRN Reason: Pain (Mild 1-3)/fever Acetaminophen/Codeine Phosphate (Tylenol With Codeine No.3 300mg/30mg) 1 tab PO Q4H PRN PRN Reason: Pain Last Admin: 01/25/17 07:00 Dose: 1 tab Acidophilus/Pectin (Acidophilus/Pectin, [place]) 2 tab PO BID [facility] Last Admin: 01/25/17 08:48 Dose: 2 tab Albuterol/Ipratropium (Duoneb 3.0-0.5 Mg/3 Ml) 3 ml NEB Q6HRRT [facility] Last Admin: 01/25/17 06:22 Dose: 3 ml Calcium Carbonate/Glycine (Tums) 1,000 mg PO BID [facility] Last Admin: 01/25/17 08:49 Dose: 1,000 mg Ferrous Sulfate (Ferrous Sulfate) 325 mg PO DAILY [facility] Last Admin: 01/25/17 08:49 Dose: 325 mg Folic Acid (Folic Acid) 1 mg PO DAILY [facility] Last Admin: 01/25/17 08:49 Dose: 1 mg Hydrogen Peroxide (Hydrogen Peroxide) 0 ml TOP ASDIRECTED PRN PRN Reason: ASDIRECTED Levofloxacin/Dextrose 500 mg/ (Premix) 100 mls @ 100 mls/hr IV Q48H [facility] Last Admin: 01/24/17 11:39 Dose: 100 mls/hr Sodium Chloride (Normal Saline) 1,000 mls @ 999 mls/hr IV ASDIRECTED [facility] Last Admin: 01/25/17 07:18 Dose: 125 mls/hr Aztreonam 1 gm/ Sodium (Chloride) 50 mls @ 100 mls/hr IV Q8H [facility] Last Admin: 01/25/17 09:03 Dose: 100 mls/hr Magnesium Sulfate 2 gm/ Premix 50 mls @ 25 mls/hr IV ONETIME ONE Stop: 01/25/17 11:48 Loperamide HCl (Imodium) 2 mg PO DAILY PRN PRN Reason: Diarrhea Magnesium Hydroxide (Milk Of Magnesia) 30 ml PO DAILY PRN PRN Reason: Constipation Metoprolol Succinate (Toprol Xl) 50 mg PO DAILY [facility] Last Admin: 01/25/17 09:06 Dose: Not Given Omeprazole (Omeprazole) 20 mg PO BEDTIME [facility] Last Admin: 01/24/17 21:02 Dose: 20 mg Ondansetron HCl (Zofran) 4 mg IVPUSH Q4H PRN PRN Reason: Nausea Biotin [Demetrio Biotin] (10,000 Mcg) 1 each PO DAILY [facility] Mv-Mn/Fa/Coq10/Lycopene/Lutein [ Theragran-M Premier 50+ Cap] 1 each PO DAILY [facility] Propylene Glycol/Peg 400 [Systane 0.3-0. 4% Eye Drops] 1 Drop 1 each EYEBOTH Q2HR PRN PRN Reason: Dry Eyes Senna/Docusate Sodium (Senna Plus) 1 tab PO BEDTIME PRN PRN Reason: Constipation Sodium Chloride (Saline Flush) 10 ml FLUSH ASDIRECTED PRN PRN Reason: Keep Vein Open Sodium Chloride (Saline Flush) 2.5 ml FLUSH ASDIRECTED PRN PRN Reason: Keep Vein Open Sodium Chloride ([place] Nasal [place]) 1 ml RADHA ASDIRECTED PRN PRN Reason: allergies for dryness Tramadol HCl (Ultram) 50 mg PO Q6HR PRN PRN Reason: Pain Last Admin: 01/24/17 12:11 Dose: 50 mg Vancomycin HCl (Pharmacy To Dose - Vancomycin) 1 dose .XX ASDIRECTED [facility] Venlafaxine HCl (Effexor Xr) 37.5 mg PO DAILY [facility] Last Admin: 01/25/17 08:49 Dose: 37.5 mg Vitamin E (Vitamin E) 400 units PO DAILY [facility] Last Admin: 01/25/17 08:49 Dose: 400 units Discontinued Medications Albuterol/Ipratropium (Duoneb 3.0-0.5 Mg/3 Ml) 3 ml NEB ONETIME ONE Stop: 01/24/17 09:37 Last Admin: 01/24/17 09:50 Dose: 3 ml Piperacillin Sod/Tazobactam (Sod 2.25 gm/ Sodium Chloride) 50 mls @ 100 mls/hr IV ONETIME ONE Stop: 01/24/17 10:10 Last Admin: 01/24/17 09:51 Dose: 100 mls/hr Sodium Chloride (Normal Saline) 500 mls @ 999 mls/hr IV .Bolus ONE Stop: 01/24/17 10:11 Last Admin: 01/24/17 10:20 Dose: Not Given Sodium Chloride (Normal Saline) 500 mls @ 250 mls/hr IV .BOLUS [facility] Last Admin: 01/24/17 10:09 Dose: 250 mls/hr Piperacillin Sod/Tazobactam (Sod 2.25 gm/ Sodium Chloride) 50 mls @ 100 mls/hr IV Q8H [facility] Last Admin: 01/25/17 00:44 Dose: 100 mls/hr Vancomycin HCl 500 mg/ Sodium (Chloride) 100 mls @ 100 mls/hr IV Q24H [facility] Last Admin: 01/24/17 13:45 Dose: 100 mls/hr Sodium Chloride (Normal Saline) 500 mls @ 250 mls/hr IV .BOLUS ONE Stop: 01/25/17 02:38 Last Admin: 01/25/17 01:02 Dose: 250 mls/hr Aztreonam 1 gm/ Sodium (Chloride) 50 mls @ 100 mls/hr IV Q8H [facility] Sodium Chloride (Normal Saline) 500 mls @ 999 mls/hr IV .BOLUS ONE Stop: 01/25/17 10:22 Ibuprofen (Motrin) 600 mg PO TID [facility] Last Admin: 01/25/17 06:09 Dose: 600 mg Morphine Sulfate (Morphine) 2 mg IVPUSH ONETIME ONE Stop: 01/24/17 09:36 Last Admin: 01/24/17 09:50 Dose: 2 mg Ondansetron HCl (Zofran) 4 mg IVPUSH ONETIME ONE Stop: 01/24/17 09:37 Last Admin: 01/24/17 09:50 Dose: 4 mg - Exam General: Alert, Oriented HEENT: Pupils Equal, EOMI Neck: Supple Lungs: Decreased Breath Sounds, Other (trach) Cardiovascular: Regular Rate, Regular Rhythm GI/Abdominal Exam: Normal Bowel Sounds, Soft Back Exam: Normal Inspection, Full Range of Motion Extremities: Normal Inspection, Normal Range of Motion - Problem List Review Problem List Initiated/Reviewed/Updated: Yes - My Orders Last 24 Hours: My Active Orders 01/25/17 07:44 Thoracentesis W/ US Guide [US] Routine 01/25/17 08:57 Aztreonam [Azactam] 1 gm Sodium Chloride 0.9% [Normal Saline] 50 ml IV Q8H 01/25/17 13:00 BASIC METABOLIC PANEL,BMP [CHEM] Routine - Plan Plan:: 71 yo female with chronic respiratory failure and trach admitted for sepsis sepsis/pna: DC zosyn due to elevated creatinine 3.2. Add azetronam and continue vancomycin metabolic acidosis: renal failure vs sepsis. Elevated creatitine 3.2 which increased from 2.1: Decreased UO she is progressing to renal failure whcih may require dialysis. 1 liter of bolus NS given will reassess BMP at 1 pm. will discuss with patient regarding transfer. Bilateral pleural effusions: US guided thoracocentesis ordered.
[2017-01-25] MEDS: Biotin [Mega Biotin] 10,000 MCG PO SCH (10:33)
[2017-01-25] MEDS: [UNRECOGNIZED DRUG - OTHER] PO SCH (10:33)
[2017-01-25] MEDS: COQ10 PO SCH (10:33)
[2017-01-25] MEDS: MV MN PO SCH (10:33)
[2017-01-25] MEDS: LYCOPENE PO SCH (10:33)
[2017-01-25] MEDS: LUTEIN PO SCH (10:33)
[2017-01-25] MEDS ORDERED: traMADol 50 MG Tab PO PRN (11:00)
[2017-01-25] MEDS ORDERED: Linezolid 600 MG in Premix Bag 1 BAG IV SCH (11:00)
--- NOTE | 2017-01-25 11:52 | PCM.SN ---
- Free Text/Narrative Note: I examined patient and reviewed her chart. I spoke with her regarding her severe renal failure and anuriia I also called and spoke with her daughter Sophie I advised that her life expectancy is limited. She verbalizes understanding and declines consideration of dialysis. We decided to cancel the thoracentesis as it is not likely to make her more comfortable under the circumstances. I discussed with DR Perrin. Antoine Orr MD
[2017-01-25] MEDS ORDERED: Calcium Carbonate 500 MG Tab.Chew PO PRN (13:21)
[2017-01-25] MEDS ORDERED: Albuterol/Ipratropium 3.0-0.5 MG/3 ML Neb Soln NEB PRN (13:21)
[2017-01-25] MEDS ORDERED: Morphine Oral Concentrate 20 MG/ML 30 ML Bottle PO PRN (13:26)
--- NOTE | 2017-01-25 13:26 | PCM.SN ---
- Free Text/Narrative Note: I spoke with patient with sister at the bedside. She desires comfort measures and hospice. She would prefer to return to [place]. See orders. Hospice consult. Antoine Orr MD
[2017-01-25] MEDS: Morphine Oral Concentrate 20 MG/ML 30 ML Bottle PO PRN ×5 (14:53→21:01)
[2017-01-25] MEDS: Omeprazole 20 MG Cap.CR PO SCH (20:01)
[2017-01-26] MEDS: Morphine Oral Concentrate 20 MG/ML 30 ML Bottle PO PRN ×3 (06:05→09:27)
--- NOTE | 2017-01-26 07:41 | PCM.DCSUM1 ---
Discharge Summary - Hospital Course Free Text/Narrative:: 71 yo female admitted for bilateral pleural effusion/sepsis/pneumonia. She was intiated with zosyn, vancomycin, levaquin. Her creatinine has increased to 3.2 from 2.1. Her zosyn was discontinued and azetronam was added secondary to her kidney function. she was progressing to renal failure where nephorologist was needed for possible dialysis. Dr. Orr had spoke to the patient and family member regarding possible transfer. The patient had decided to proceed to comfort care and hospice after understanding her prognosis. She prefers to be discharged to [facility]. Antibiotics and medications have been stopped. She is discharged to [facility]. Hospice is to follow the patient. - Discharge Data Discharge Date: 01/26/17 Discharge Disposition: DC/Tfer to [facility] 03 Condition: Poor - Patient Summary/Data Consults: Consultations 01/25/17 13:24 Consult to Hospice [CONS] Routine - Discharge Plan Home Medications: Home Meds Ferrous Sulfate [Iron Supplement] 325 mg PO DAILY #30 05/19/13 [Rx] Folic Acid 1 mg PO DAILY #30 05/19/13 [Rx] Ibuprofen [Motrin] 600 mg PO TID #90 05/19/13 [Rx] Levalbuterol HCl [Xopenex] 1.25 mg INH Q2H PRN #100 neb 05/19/13 [Rx] Magnesium Hydroxide [Milk of Magnesia] 30 ml PO DAILY PRN #300 05/19/13 [Rx] Vitamin E 400 intnl unit PO DAILY #30 05/19/13 [Rx] Venlafaxine HCl [Venlafaxine ER] 37.5 mg PO DAILY 10/02/13 [History] Sodium Chloride 0.9% 3 ml IH ASDIRECTED PRN 11/02/13 [History] Acetaminophen [Non-Aspirin Extra Strength] 2 tab PO BEDTIME 09/26/14 [History] Acyclovir 400 mg PO TID PRN 09/26/14 [History] Albuterol [Proventil Neb Soln] 2.5 mg NEB Q6HRRT PRN 09/26/14 [History] Ascorbic Acid [Vitamin C] 500 mg PO DAILY 09/26/14 [History] Biotin [Demetrio Biotin] 10,000 mcg PO DAILY 09/26/14 [History] Calcium Carbonate [Tums] 1,000 mg PO BID 09/26/14 [History] Chlorpheniramine Maleate [Allergy] 4 mg PO DAILY PRN 09/26/14 [History] Cod Liver Oil 1 cap PO DAILY 09/26/14 [History] Fluticasone Propionate [Flonase] 1 mcg NASBOTH BEDTIME PRN 09/26/14 [History] Loperamide HCl [Anti-Diarrheal] 2 mg PO DAILY PRN 09/26/14 [History] MV-Mn/FA/Coq10/Lycopene/Lutein [Theragran-M Premier 50+ Caplet] 1 each PO DAILY 09/26/14 [History] Menthol [Biofreeze] 1 applic TOP DAILY PRN 09/26/14 [History] Methotrexate Sodium/PF [Methotrexate 50 mg/2 ml Vial] 25 mg IM ASDIRECTED [History] Montelukast Sodium 10 mg PO DAILY 09/26/14 [History] Omeprazole [Prilosec] 20 cap PO BEDTIME 09/26/14 [History] Propylene Glycol/Peg 400 [Systane 0.3-0.4% Eye Drops] 1 drop OP Q2HR PRN [History] traMADol [Ultram] 50 mg PO Q6HR PRN 09/26/14 [History] Acetaminophen [Tylenol Extra Strength] 1,000 mg PO BID PRN 11/10/14 [History] Sodium Chloride [Saline Nasal Mist] 1 spray NS ASDIRECTED PRN 11/10/14 [History] Docusate Sodium/Sennosides [Senna Plus] 1 tab PO BEDTIME PRN 02/09/15 [History] Metoprolol Succinate [Toprol XL] 50 mg PO DAILY tab.er 02/10/15 [Rx] Acetaminophen with Codeine [Tylenol with Codeine #3 Tablet] 1 tab PO Q4H PRN 09/03 [History] Amoxicillin/Potassium Clav [Augmentin 875-125 Tablet] 1 tab PO BID 01/24/17 [ History] Lactobacillus Acidophilus [Acidophilus] 2 cap PO BID 01/24/17 [History] Patient Handouts: Pleural Effusion Referrals: [facility] [Outside] Angel Coburn MD [Physician] - - General Info Date of Service: 01/26/17 Subjective Update: unable to obtain ROS - Patient Data Vitals - Most Recent: Last Vital Signs Temp 98.1 F 01/25/17 20:00 Pulse 92 01/25/17 09:06 Resp 20 01/25/17 20:00 BP 123/45 L 01/25/17 20:00 Pulse Ox 95 01/25/17 20:00 Weight - Most Recent: 47.7 kg I&O - Last 24 hours: Intake & Output 01/25/17 01/26/17 01/26/17 22:59 06:59 14:59 Intake Total 380 0 Output Total 5 0 Balance 375 0 MELISSA Results - Last 24 hrs: Microbiology 01/25/17 03:00 Urine Culture - Final Urine, Catheterized No Growth Med Orders - Current: Current Medications Acetaminophen (Tylenol) 325 mg PO Q4H PRN PRN Reason: Pain (Mild 1-3)/fever Acidophilus/Pectin (Acidophilus/Pectin, [place]) 2 tab PO BID [place] Last Admin: 01/25/17 20:01 Dose: Not Given Albuterol/Ipratropium (Duoneb 3.0-0.5 Mg/3 Ml) 3 ml NEB Q6HRRT PRN PRN Reason: Wheezing Last Admin: 01/25/17 18:17 Dose: 3 ml Calcium Carbonate/Glycine (Tums) 1,000 mg PO BID PRN PRN Reason: Dyspepsia Hydrogen Peroxide (Hydrogen Peroxide) 0 ml TOP ASDIRECTED PRN PRN Reason: ASDIRECTED Loperamide HCl (Imodium) 2 mg PO DAILY PRN PRN Reason: Diarrhea Magnesium Hydroxide (Milk Of Magnesia) 30 ml PO DAILY PRN PRN Reason: Constipation Morphine Sulfate (Morphine 20 Mg/Ml Soln) 10 mg PO Q1H PRN PRN Reason: Pain Last Admin: 01/26/17 06:05 Dose: 10 mg Omeprazole (Omeprazole) 20 mg PO BEDTIME [place] Last Admin: 01/25/17 20:01 Dose: Not Given Ondansetron HCl (Zofran) 4 mg IVPUSH Q4H PRN PRN Reason: Nausea Last Admin: 01/25/17 11:36 Dose: 4 mg Biotin [Demetrio Biotin] (10,000 Mcg) 1 each PO DAILY [facility] Last Admin: 01/25/17 10:33 Dose: Not Given Mv-Mn/Fa/Coq10/Lycopene/Lutein [ Theragran-M Premier 50+ Cap] 1 each PO DAILY [facility] Last Admin: 01/25/17 10:33 Dose: Not Given Propylene Glycol/Peg 400 [Systane 0.3-0. 4% Eye Drops] 1 Drop 1 each EYEBOTH Q2HR PRN PRN Reason: Dry Eyes Senna/Docusate Sodium (Senna Plus) 1 tab PO BEDTIME PRN PRN Reason: Constipation Sodium Chloride (Saline Flush) 10 ml FLUSH ASDIRECTED PRN PRN Reason: Keep Vein Open Sodium Chloride (Saline Flush) 2.5 ml FLUSH ASDIRECTED PRN PRN Reason: Keep Vein Open Sodium Chloride ([place] Nasal [place]) 1 ml RADHA ASDIRECTED PRN PRN Reason: allergies for dryness Tramadol HCl (Ultram) 50 mg PO Q12H PRN PRN Reason: Pain Venlafaxine HCl (Effexor Xr) 37.5 mg PO DAILY [facility] Last Admin: 01/25/17 08:49 Dose: 37.5 mg Discontinued Medications Acetaminophen/Codeine Phosphate (Tylenol With Codeine No.3 300mg/30mg) 1 tab PO Q4H PRN PRN Reason: Pain Last Admin: 01/25/17 10:58 Dose: 1 tab Albuterol/Ipratropium (Duoneb 3.0-0.5 Mg/3 Ml) 3 ml NEB ONETIME ONE Stop: 01/24/17 09:37 Last Admin: 01/24/17 09:50 Dose: 3 ml Albuterol/Ipratropium (Duoneb 3.0-0.5 Mg/3 Ml) 3 ml NEB Q6HRRT [facility] Last Admin: 01/25/17 12:08 Dose: 3 ml Calcium Carbonate/Glycine (Tums) 1,000 mg PO BID [facility] Last Admin: 01/25/17 08:49 Dose: 1,000 mg Ferrous Sulfate (Ferrous Sulfate) 325 mg PO DAILY [facility] Last Admin: 01/25/17 08:49 Dose: 325 mg Folic Acid (Folic Acid) 1 mg PO DAILY [facility] Last Admin: 01/25/17 08:49 Dose: 1 mg Piperacillin Sod/Tazobactam (Sod 2.25 gm/ Sodium Chloride) 50 mls @ 100 mls/hr IV ONETIME ONE Stop: 01/24/17 10:10 Last Admin: 01/24/17 09:51 Dose: 100 mls/hr Sodium Chloride (Normal Saline) 500 mls @ 999 mls/hr IV .Bolus ONE Stop: 01/24/17 10:11 Last Admin: 01/24/17 10:20 Dose: Not Given Sodium Chloride (Normal Saline) 500 mls @ 250 mls/hr IV .BOLUS [facility] Last Admin: 01/24/17 10:09 Dose: 250 mls/hr Levofloxacin/Dextrose 500 mg/ (Premix) 100 mls @ 100 mls/hr IV Q48H [facility] Last Admin: 01/24/17 11:39 Dose: 100 mls/hr Piperacillin Sod/Tazobactam (Sod 2.25 gm/ Sodium Chloride) 50 mls @ 100 mls/hr IV Q8H [facility] Last Admin: 01/25/17 00:44 Dose: 100 mls/hr Vancomycin HCl 500 mg/ Sodium (Chloride) 100 mls @ 100 mls/hr IV Q24H [facility] Last Admin: 01/24/17 13:45 Dose: 100 mls/hr Sodium Chloride (Normal Saline) 1,000 mls @ 999 mls/hr IV ASDIRECTED [facility] Last Admin: 01/25/17 10:01 Dose: 999 mls/hr Sodium Chloride (Normal Saline) 500 mls @ 250 mls/hr IV .BOLUS ONE Stop: 01/25/17 02:38 Last Admin: 01/25/17 01:02 Dose: 250 mls/hr Aztreonam 1 gm/ Sodium (Chloride) 50 mls @ 100 mls/hr IV Q8H [facility] Last Admin: 01/25/17 14:49 Dose: Not Given Aztreonam 1 gm/ Sodium (Chloride) 50 mls @ 100 mls/hr IV Q8H [facility] Last Admin: 01/25/17 09:03 Dose: 100 mls/hr Magnesium Sulfate 2 gm/ Premix 50 mls @ 25 mls/hr IV ONETIME ONE Stop: 01/25/17 11:48 Last Admin: 01/25/17 11:40 Dose: 25 mls/hr Sodium Chloride (Normal Saline) 500 mls @ 999 mls/hr IV .BOLUS ONE Stop: 01/25/17 10:22 Last Admin: 01/25/17 14:49 Dose: Not Given Linezolid 600 mg/ Premix 300 mls @ 300 mls/hr IV Q12H [facility] Last Admin: 01/25/17 11:40 Dose: 300 mls/hr Ibuprofen (Motrin) 600 mg PO TID [facility] Last Admin: 01/25/17 06:09 Dose: 600 mg Metoprolol Succinate (Toprol Xl) 50 mg PO DAILY [facility] Last Admin: 01/25/17 09:06 Dose: Not Given Morphine Sulfate (Morphine) 2 mg IVPUSH ONETIME ONE Stop: 01/24/17 09:36 Last Admin: 01/24/17 09:50 Dose: 2 mg Morphine Sulfate (Morphine 20 Mg/Ml Soln) 5 mg PO Q1H PRN PRN Reason: Pain Morphine Sulfate (Morphine 20 Mg/Ml Soln) 0 mg PO Q1H PRN PRN Reason: Pain Last Admin: 01/25/17 21:01 Dose: 5 mg Ondansetron HCl (Zofran) 4 mg IVPUSH ONETIME ONE Stop: 01/24/17 09:37 Last Admin: 01/24/17 09:50 Dose: 4 mg Tramadol HCl (Ultram) 50 mg PO Q6HR PRN PRN Reason: Pain Last Admin: 01/24/17 12:11 Dose: 50 mg Vancomycin HCl (Pharmacy To Dose - Vancomycin) 1 dose .XX ASDIRECTED [facility] Vitamin E (Vitamin E) 400 units PO DAILY [facility] Last Admin: 01/25/17 08:49 Dose: 400 units - Exam Neck: Reports: Other (trach) Lungs: Reports: Decreased Breath Sounds Back Exam: Reports: Normal Inspection Extremities: Normal Inspection Skin: Reports: Warm, Dry, Intact *Q Meaningful Use (DIS) - VTE *Q VTE Criteria *Q: - Stroke *Q Stroke Criteria *Q: - AMI *Q AMI Criteria *Q:
[2017-01-26] MEDS: Acidophilus with Citrus Pectin Tab PO SCH (08:34)
[2017-01-26] MEDS: [UNRECOGNIZED DRUG - OTHER] PO SCH (08:35)
[2017-01-26] MEDS: LUTEIN PO SCH (08:35)
[2017-01-26] MEDS: MV MN PO SCH (08:35)
[2017-01-26] MEDS: COQ10 PO SCH (08:35)
[2017-01-26] MEDS: Biotin [Mega Biotin] 10,000 MCG PO SCH (08:35)
[2017-01-26] MEDS: LYCOPENE PO SCH (08:35)
[2017-01-26] MEDS: Venlafaxine 37.5 MG Cap.ER PO SCH (08:35)
[2017-01-26] MEDS: Morphine 2 MG/ML Syringe IVPUSH PRN ×2 (10:17→11:41)
[2017-01-26] MEDS: Morphine 10 MG/ML Syringe IVPUSH PRN ×4 (12:52→21:00)
--- NOTE | 2017-01-26 15:23 | PCM.PN ---
- General Info Date of Service: 01/26/17 Subjective Update: discharge was cancelled as patient appeared to be minimally responsive and have mottling of the extremities. O: non verbal; minimally responsive sonorous respirations heart rate about 130/minute when examined 5 hours ago A: acute renal failure pneumonia status post tracheostomy after prolonged ventilator management in the past severe rheumatoid arthritis with multiple severe skeletal deformities chronic pain P: earlier today I cancelled her discharge as I believe that is imminent. family members at bedside comfort measures Antoine Orr MD - Patient Data Vitals - Most Recent: Last Vital Signs Temp 98.8 F 01/26/17 08:00 Pulse 112 H 01/26/17 08:00 Resp 12 01/26/17 08:00 BP 129/33 L 01/26/17 08:00 Pulse Ox 86 L 01/26/17 08:00 Weight - Most Recent: 47.7 kg I&O - Last 24 Hours: Intake & Output 01/26/17 01/26/17 01/26/17 06:59 14:59 22:59 Intake Total 0 Output Total 0 Balance 0 [place] Results Last 24 Hours: Microbiology 01/25/17 03:00 Urine Culture - Final Urine, Catheterized No Growth Med Orders - Current: Current Medications Acetaminophen (Tylenol) 325 mg PO Q4H PRN PRN Reason: Pain (Mild 1-3)/fever Acidophilus/Pectin (Acidophilus/Pectin, [place]) 2 tab PO BID [place] Last Admin: 01/26/17 08:34 Dose: Not Given Albuterol/Ipratropium (Duoneb 3.0-0.5 Mg/3 Ml) 3 ml NEB Q6HRRT PRN PRN Reason: Wheezing Last Admin: 01/25/17 18:17 Dose: 3 ml Calcium Carbonate/Glycine (Tums) 1,000 mg PO BID PRN PRN Reason: Dyspepsia Hydrogen Peroxide (Hydrogen Peroxide) 0 ml TOP ASDIRECTED PRN PRN Reason: ASDIRECTED Loperamide HCl (Imodium) 2 mg PO DAILY PRN PRN Reason: Diarrhea Magnesium Hydroxide (Milk Of Magnesia) 30 ml PO DAILY PRN PRN Reason: Constipation Morphine Sulfate (Morphine 20 Mg/Ml Soln) 10 mg PO Q1H PRN PRN Reason: Pain Last Admin: 01/26/17 09:27 Dose: 10 mg Morphine Sulfate (Morphine) 5 - 10 mg IVPUSH Q1H PRN PRN Reason: Pain Last Admin: 01/26/17 12:52 Dose: 10 mg Omeprazole (Omeprazole) 20 mg PO BEDTIME [facility] Last Admin: 01/25/17 20:01 Dose: Not Given Ondansetron HCl (Zofran) 4 mg IVPUSH Q4H PRN PRN Reason: Nausea Last Admin: 01/25/17 11:36 Dose: 4 mg Biotin [Demetrio Biotin] (10,000 Mcg) 1 each PO DAILY [facility] Last Admin: 01/26/17 08:35 Dose: Not Given Mv-Mn/Fa/Coq10/Lycopene/Lutein [ Theragran-M Premier 50+ Cap] 1 each PO DAILY [facility] Last Admin: 01/26/17 08:35 Dose: Not Given Propylene Glycol/Peg 400 [Systane 0.3-0. 4% Eye Drops] 1 Drop 1 each EYEBOTH Q2HR PRN PRN Reason: Dry Eyes Senna/Docusate Sodium (Senna Plus) 1 tab PO BEDTIME PRN PRN Reason: Constipation Sodium Chloride (Saline Flush) 10 ml FLUSH ASDIRECTED PRN PRN Reason: Keep Vein Open Sodium Chloride (Saline Flush) 2.5 ml FLUSH ASDIRECTED PRN PRN Reason: Keep Vein Open Sodium Chloride ([place] Nasal [place]) 1 ml RADHA ASDIRECTED PRN PRN Reason: allergies for dryness Tramadol HCl (Ultram) 50 mg PO Q12H PRN PRN Reason: Pain Venlafaxine HCl (Effexor Xr) 37.5 mg PO DAILY [facility] Last Admin: 01/26/17 08:35 Dose: Not Given Discontinued Medications Acetaminophen/Codeine Phosphate (Tylenol With Codeine No.3 300mg/30mg) 1 tab PO Q4H PRN PRN Reason: Pain Last Admin: 01/25/17 10:58 Dose: 1 tab Albuterol/Ipratropium (Duoneb 3.0-0.5 Mg/3 Ml) 3 ml NEB ONETIME ONE Stop: 01/24/17 09:37 Last Admin: 01/24/17 09:50 Dose: 3 ml Albuterol/Ipratropium (Duoneb 3.0-0.5 Mg/3 Ml) 3 ml NEB Q6HRRT [facility] Last Admin: 01/25/17 12:08 Dose: 3 ml Calcium Carbonate/Glycine (Tums) 1,000 mg PO BID [facility] Last Admin: 01/25/17 08:49 Dose: 1,000 mg Ferrous Sulfate (Ferrous Sulfate) 325 mg PO DAILY [facility] Last Admin: 01/25/17 08:49 Dose: 325 mg Folic Acid (Folic Acid) 1 mg PO DAILY [facility] Last Admin: 01/25/17 08:49 Dose: 1 mg Piperacillin Sod/Tazobactam (Sod 2.25 gm/ Sodium Chloride) 50 mls @ 100 mls/hr IV ONETIME ONE Stop: 01/24/17 10:10 Last Admin: 01/24/17 09:51 Dose: 100 mls/hr Sodium Chloride (Normal Saline) 500 mls @ 999 mls/hr IV .Bolus ONE Stop: 01/24/17 10:11 Last Admin: 01/24/17 10:20 Dose: Not Given Sodium Chloride (Normal Saline) 500 mls @ 250 mls/hr IV .BOLUS [facility] Last Admin: 01/24/17 10:09 Dose: 250 mls/hr Levofloxacin/Dextrose 500 mg/ (Premix) 100 mls @ 100 mls/hr IV Q48H [facility] Last Admin: 01/24/17 11:39 Dose: 100 mls/hr Piperacillin Sod/Tazobactam (Sod 2.25 gm/ Sodium Chloride) 50 mls @ 100 mls/hr IV Q8H [facility] Last Admin: 01/25/17 00:44 Dose: 100 mls/hr Vancomycin HCl 500 mg/ Sodium (Chloride) 100 mls @ 100 mls/hr IV Q24H [facility] Last Admin: 01/24/17 13:45 Dose: 100 mls/hr Sodium Chloride (Normal Saline) 1,000 mls @ 999 mls/hr IV ASDIRECTED [facility] Last Admin: 01/25/17 10:01 Dose: 999 mls/hr Sodium Chloride (Normal Saline) 500 mls @ 250 mls/hr IV .BOLUS ONE Stop: 01/25/17 02:38 Last Admin: 01/25/17 01:02 Dose: 250 mls/hr Aztreonam 1 gm/ Sodium (Chloride) 50 mls @ 100 mls/hr IV Q8H [facility] Last Admin: 01/25/17 14:49 Dose: Not Given Aztreonam 1 gm/ Sodium (Chloride) 50 mls @ 100 mls/hr IV Q8H [facility] Last Admin: 01/25/17 09:03 Dose: 100 mls/hr Magnesium Sulfate 2 gm/ Premix 50 mls @ 25 mls/hr IV ONETIME ONE Stop: 01/25/17 11:48 Last Admin: 01/25/17 11:40 Dose: 25 mls/hr Sodium Chloride (Normal Saline) 500 mls @ 999 mls/hr IV .BOLUS ONE Stop: 01/25/17 10:22 Last Admin: 01/25/17 14:49 Dose: Not Given Linezolid 600 mg/ Premix 300 mls @ 300 mls/hr IV Q12H [facility] Last Admin: 01/25/17 11:40 Dose: 300 mls/hr Ibuprofen (Motrin) 600 mg PO TID [facility] Last Admin: 01/25/17 06:09 Dose: 600 mg Metoprolol Succinate (Toprol Xl) 50 mg PO DAILY [facility] Last Admin: 01/25/17 09:06 Dose: Not Given Morphine Sulfate (Morphine) 2 mg IVPUSH ONETIME ONE Stop: 01/24/17 09:36 Last Admin: 01/24/17 09:50 Dose: 2 mg Morphine Sulfate (Morphine 20 Mg/Ml Soln) 5 mg PO Q1H PRN PRN Reason: Pain Morphine Sulfate (Morphine 20 Mg/Ml Soln) 0 mg PO Q1H PRN PRN Reason: Pain Last Admin: 01/25/17 21:01 Dose: 5 mg Morphine Sulfate (Morphine) 5 - 10 mg IVPUSH Q1H PRN PRN Reason: Pain Last Admin: 01/26/17 11:41 Dose: 5 mg Ondansetron HCl (Zofran) 4 mg IVPUSH ONETIME ONE Stop: 01/24/17 09:37 Last Admin: 01/24/17 09:50 Dose: 4 mg Tramadol HCl (Ultram) 50 mg PO Q6HR PRN PRN Reason: Pain Last Admin: 01/24/17 12:11 Dose: 50 mg Vancomycin HCl (Pharmacy To Dose - Vancomycin) 1 dose .XX ASDIRECTED [facility] Vitamin E (Vitamin E) 400 units PO DAILY [facility] Last Admin: 01/25/17 08:49 Dose: 400 units - Problem List & Annotations (1) Rheumatoid arthritis SNOMED Code(s): 06651450 Code(s): M06.9 - RHEUMATOID ARTHRITIS, UNSPECIFIED Status: Acute Current Visit: Yes (2) Tracheostomy in place SNOMED Code(s): 074525479 Code(s): Z93.0 - TRACHEOSTOMY STATUS Status: Acute Current Visit: Yes (3) Pneumonia SNOMED Code(s): 386099707 Code(s): J18.9 - PNEUMONIA, UNSPECIFIED ORGANISM Status: Acute Current Visit: No - Problem List Review Problem List Initiated/Reviewed/Updated: Yes - My Orders Last 24 Hours: My Active Orders 01/25/17 14:37 Transfer Patient (Change bed) [ADT] Routine 01/25/17 20:00 Vital Signs [RC] Q12H 01/25/17 21:43 Morphine [Morphine 20 MG/ML Soln] 10 mg PO Q1H PRN 01/26/17 12:45 Morphine 5 - 10 mg IVPUSH Q1H PRN - Plan Plan:: 71 yo female with chronic respiratory failure and trach admitted for sepsis sepsis/pna: DC zosyn due to elevated creatinine 3.2. Add azetronam and continue vancomycin metabolic acidosis: renal failure vs sepsis. Elevated creatitine 3.2 which increased from 2.1: Decreased UO she is progressing to renal failure whcih may require dialysis. 1 liter of bolus NS given will reassess BMP at 1 pm. will discuss with patient regarding transfer. Bilateral pleural effusions: US guided thoracocentesis ordered.
[2017-01-26] MEDS: Atropine 1% Ophth Soln 5 ML BOTTLE SL SCH ×2 (20:43→21:27)
[2017-01-26 22:07] VITALS: BP 100/51
== END 2017-01-26 23:26 | disposition expired | DRG 871 ==
LOC: MW.ED 07:53 → MW.MS 10:13 → MW.ICU 21:27 → MW.MS 01-26 16:45
PROVIDERS: ADMIT Family Medicine; ATTEND Family Medicine
DX: A41.9 Sepsis, unspecified organism (principal); J18.9 Pneumonia, unspecified organism; J90 Pleural effusion, not elsewhere classified; N17.9 Acute kidney failure, unspecified; J96.10 Chronic respiratory failure, unspecified whether with hypoxia or hypercapnia; M06.9 Rheumatoid arthritis, unspecified; H91.90 Unspecified hearing loss, unspecified ear; Z51.5 Encounter for palliative care; I10 Essential (primary) hypertension; D64.9 Anemia, unspecified; J45.909 Unspecified asthma, uncomplicated; Z93.0 Tracheostomy status; M19.90 Unspecified osteoarthritis, unspecified site; F32.9 Major depressive disorder, single episode, unspecified; M81.0 Age-related osteoporosis without current pathological fracture; Z96.649 Presence of unspecified artificial hip joint; Z96.619 Presence of unspecified artificial shoulder joint; Z96.659 Presence of unspecified artificial knee joint; Z79.899 Other long term (current) drug therapy; Z88.1 Allergy status to other antibiotic agents; Z91.040 Latex allergy status; Z88.0 Allergy status to penicillin; Z88.2 Allergy status to sulfonamides; Z88.8 Allergy status to other drugs, medicaments and biological substances; Z91.048 Other nonmedicinal substance allergy status; R34 Anuria and oliguria; R41.82 Altered mental status, unspecified; G89.29 Other chronic pain
CPT/HCPCS: 36415; 80053; 85025; 85610; 85730; 87040 ×2; 96361; 96365; 96375; 99285; J2270; J2405; J2543; J7040; J7050; 51702; 71010; 71010-26; 81001; 82803; 83605; 83735; 84100; 87086; 93005; 94640; A9270-GY; J1956; J2020; J3370; J3475; J7030